=== PATIENT | female | born 2000 | race Caucasian/White ===

== ENCOUNTER 2024-02-08 10:48 | Day surgery (SDC) | payer OTHER ==
[2024-02-07 15:06] VITALS: BMI 19.5
[2024-02-08] MEDS ORDERED: VANCOMYCIN 1,000 MG VIAL (RESTRICTED TO ID ONLY) ONE (11:02)
[2024-02-08] MEDS ORDERED: ceFAZolin SODIUM 1 GM VIAL ONE (11:02)
[2024-02-08] MEDS ORDERED: GENTAMICIN SO4 80 MG/2 ML VIAL ONE (11:02)
[2024-02-08] MEDS ORDERED: POVIDONE-IODINE 5% OPHTHALMIC PREP 30 ML SOLUTION ONE (11:04)
[2024-02-08] MEDS ORDERED: BUPIVACAINE HCL/EPINEPHRINE/PF 30 ML VIAL IJ ONE (11:15)
[2024-02-08] MEDS ORDERED: oxyCODONE HCL 5 MG TABLET PO PRN (13:59)
[2024-02-08] MEDS ORDERED: LACTATED RINGERS SOLUTION 1,000 ML IV SCH (14:00)
[2024-02-08] MEDS ORDERED: ACETAMINOPHEN INJECTION 100 ML IVPB ONE (14:05)
[2024-02-08] MEDS ORDERED: MIDAZOLAM HCL 2 MG/2 ML SINGLE DOSE VIAL ONE (14:05)
[2024-02-08] MEDS ORDERED: PROPOFOL 40 ML ONE (14:13)
[2024-02-08] MEDS ORDERED: SUCCINYLCHOLINE CHLORIDE 200 MG/10 ML SYRINGE ONE (14:14)
[2024-02-08] MEDS ORDERED: ROCURONIUM BROMIDE 50 MG/5 ML SYRINGE ONE (14:22)
[2024-02-08] MEDS ORDERED: AMPICILLIN NA/SULBACTAM NA 3 GM VIAL ONE (14:25)
[2024-02-08] MEDS ORDERED: HYDROmorphone HCL/PF 1 MG/ML VIAL ONE (14:40)
[2024-02-08] MEDS: BUPIVACAINE 0.25% /EPI 1:200,000 10 ML VIAL NR ONE (14:59)
[2024-02-08] MEDS ORDERED: SUGAMMADEX SODIUM 200 MG/2 ML VIAL ONE (16:09)
[2024-02-08] MEDS ORDERED: FENTANYL CITRATE/PF 50 MCG/ML VIAL ONE ×2 (16:52→17:02)
[2024-02-08] MEDS ORDERED: ONDANSETRON 4 MG/2 ML VIAL ONE (17:06)
[2024-02-08] MEDS: ONDANSETRON 4 MG/2 ML VIAL IVPUSH PRN (17:09)
[2024-02-08] MEDS ORDERED: oxyCODONE HCL 5 MG TABLET ONE ×2 (17:49→18:20)
[2024-02-08] MEDS: oxyCODONE HCL 5 MG TABLET PO PRN (17:55)
[2024-02-08 18:06] VITALS: RESP 16
[2024-02-08 18:14] VITALS: TEMP 98.2
[2024-02-08 18:57] VITALS: BP 130/81; PULSE 79
== END 2024-02-08 19:06 | disposition home or self-care (01) ==
LOC: FASU 10:48
PROVIDERS: ATTEND Plastic Surgery
PROC: 0WB30ZZ Excision of Oral Cavity and Throat, Open Approach (ICD-10-PCS; principal; 2024-02-08 14:52)
DX: D16.5 Benign neoplasm of lower jaw bone (principal); S01.409A Unspecified open wound of unspecified cheek and temporomandibular area, initial encounter; X58.XXXA Exposure to other specified factors, initial encounter; Y93.9 Activity, unspecified; Y92.9 Unspecified place or not applicable
CPT/HCPCS: 81025; 87070; 87205; 94760; J0131